=== PATIENT | male | born 1985 | race American Indian/Alaskan Native ===

== ENCOUNTER 2018-06-06 18:20 | Emergency (ER) | payer OTHER ==
[2018-06-06 18:28] VITALS: BP 155/99
[2018-06-06] MEDS ORDERED: DUONEB *Not for PRN Use IH ONE (18:28)
== END 2018-06-06 19:30 | disposition left against medical advice (07) ==
LOC: ED 18:20
DX: R09.81 Nasal congestion (principal); R06.02 Shortness of breath; Z53.21 Procedure and treatment not carried out due to patient leaving prior to being seen by health care provider
CPT/HCPCS: 94640